=== PATIENT | female | born 1950 | race Caucasian/White ===

== ENCOUNTER 2017-01-21 09:39 | Observation (INO) | payer MEDICAID, MEDICARE ==
[2017-01-21] MEDS ORDERED: ASPIRIN 81 MG CHEW PO STA (09:59)
[2017-01-21] MEDS ORDERED: NITROGLYCERIN SL TABS 0.4 MG TAB SUBLINGUAL STA ×3 (09:59)
[2017-01-21] MEDS ORDERED: PANTOPRAZOLE 40 MG/10 ML VIAL IVP STA (10:00)
--- NOTE | 2017-01-21 10:06 | ED ---
General Adult HPI - General Chief complaint: Chest Pain Stated complaint: chest pain Time Seen by Provider: 01/21/17 09:56 Source: patient, RN notes reviewed Mode of arrival: wheelchair Limitations: no limitations - History of Present Illness Initial comments: Patient is a pleasant 66-year-old female presenting to the emergency Department with nausea and chest discomfort. Onset of symptoms was a couple of hours ago. Patient has had similar symptoms previously that she attributes to her hiatal hernia. Patient states the symptoms are similar however worse. Patient states she is vomiting more than normal. Patient states the discomfort is worse than normal. Patient states there may be some associated dyspnea. Patient is still mildly nauseated even without swallowing. No diaphoresis. Discomfort feels like a pressure. No abdominal pain. No radiation. Symptoms do increase with swallowing. - Related Data Home Medications Medication Instructions Recorded Confirmed Levothyroxine Sodium [Synthroid] 25 mcg PO HS 03/05/16 01/21/17 Meloxicam 15 mg PO Q48H 03/05/16 01/21/17 Ascorbic Acid [Vitamin C] 500 mg PO DAILY 01/21/17 01/21/17 Aspirin 81 mg PO DAILY 01/21/17 01/21/17 Multivitamins, Thera [Multivitamin 1 tab PO DAILY 01/21/17 01/21/17 (formulary)] [place]-3 Fatty Acids/Fish Oil [Fish 1 cap PO DAILY 01/21/17 01/21/17 Oil 1,000 mg Capsule] Ubidecarenone [Co Q-10] 50 mg PO DAILY 01/21/17 01/21/17 Allergies Allergy/AdvReac Type Severity Reaction Status Date / Time gluten Allergy Unknown Verified 01/21/17 10:08 latex Allergy Unknown Verified 01/21/17 10:08 [employer] Allergy Heart Uncoded 01/21/17 10:08 Palpitations Review of Systems ROS Statement: Those systems with pertinent positive or pertinent negative responses have been documented in the HPI. ROS Other: All systems not noted in ROS Statement are negative. Constitutional: Denies: fever Eyes: Denies: eye pain ENT: Denies: ear pain Respiratory: Reports: dyspnea. Denies: cough Cardiovascular: Reports: chest pain. Denies: palpitations Endocrine: Denies: fatigue Gastrointestinal: Reports: nausea, vomiting. Denies: abdominal pain Genitourinary: Denies: dysuria Musculoskeletal: Denies: back pain Skin: Denies: rash Neurological: Denies: weakness Past Medical History Past Medical History: No Reported History History of Any Multi-Drug Resistant Organisms: None Reported Past Surgical History: Appendectomy Past Psychological History: No Psychological Hx Reported Smoking Status: Never smoker Past Alcohol Use History: None Reported Past Drug Use History: None Reported General Exam Limitations: no limitations General appearance: alert, in no apparent distress Head exam: Present: atraumatic Eye exam: Present: normal appearance, PERRL ENT exam: Present: normal oropharynx Neck exam: Present: normal inspection Respiratory exam: Present: normal lung sounds bilaterally. Absent: chest wall tenderness Cardiovascular Exam: Present: regular rate, normal rhythm, normal heart sounds Expanded Peripheral pulses: 2+: Radial (R), Radial (L), Posterior Tibialis (R), Posterior Tibialis (L) GI/Abdominal exam: Present: soft. Absent: distended, tenderness, pulsatile mass Extremities exam: Present: normal inspection. Absent: pedal edema, calf tenderness Neurological exam: Present: alert Psychiatric exam: Present: normal affect, normal mood Skin exam: Present: normal color Course Vital Signs 01/21/17 01/21/17 01/21/17 09:46 10:57 11:05 Temperature 98.9 F Pulse Rate 83 66 72 Respiratory 18 16 16 Rate Blood Pressure 200/78 211/96 182/88 O2 Sat by Pulse 99 100 100 Oximetry 01/21/17 01/21/17 11:14 11:19 Temperature Pulse Rate 74 73 Respiratory 16 Rate Blood Pressure 151/75 195/91 O2 Sat by Pulse Oximetry EKG Findings - EKG Comments: EKG Findings:: Normal sinus rhythm at 86. Normal intervals. Normal axis. Septal Q waves. No acute ST change. Medical Decision Making - Medical Decision Making Patient reevaluated and updated. Case discussed in detail with Dr. Gutierrez, who will admit his patient. - Lab Data Result diagrams: 01/21/17 09:53 01/21/17 09:53 Lab Results 01/21/17 01/21/17 01/21/17 Range/Units 09:53 09:53 09:53 WBC 3.6 L (3.8-10.6) k/uL RBC 4.23 (3.80-5.40) m/uL Hgb 12.0 (11.4-16.0) gm/dL Hct 37.6 (34.0-46.0) % MCV 88.8 (80.0-100.0) fL MCH 28.3 (25.0-35.0) pg MCHC 31.9 (31.0-37.0) g/dL RDW 14.5 (11.5-15.5) % Plt Count 279 (150-450) k/uL Neutrophils % 53 % Lymphocytes % 24 % Monocytes % 13 % Eosinophils % 5 % Basophils % 1 % Neutrophils # 1.9 (1.3-7.7) k/uL Lymphocytes # 0.9 L (1.0-4.8) k/uL Monocytes # 0.5 (0-1.0) k/uL Eosinophils # 0.2 (0-0.7) k/uL Basophils # 0.0 (0-0.2) k/uL PT (9.0-12.0) sec INR (<1.1) APTT (22.0-30.0) sec Sodium 142 (137-145) mmol/L Potassium 4.0 (3.5-5.1) mmol/L Chloride 106 (98-107) mmol/L Carbon Dioxide 25 (22-30) mmol/L Anion Gap 11 mmol/L BUN 18 H (7-17) mg/dL Creatinine 0.63 (0.52-1.04) mg/dL Est GFR (MDRD) Af Amer >60 (>60 ml/min/1.73 sqM) Est GFR (MDRD) Non-Af >60 (>60 ml/min/1.73 sqM) Glucose 86 (74-99) mg/dL Calcium 9.6 (8.4-10.2) mg/dL Magnesium 1.9 (1.6-2.3) mg/dL Total Bilirubin 0.7 (0.2-1.3) mg/dL AST 27 (14-36) U/L ALT 30 (9-52) U/L Alkaline Phosphatase 86 (38-126) U/L Total Creatine Kinase 80 (30-135) U/L CK-MB (CK-2) 1.9 (0.0-2.4) ng/mL CK-MB (CK-2) Rel Index 2.4 Troponin I <0.012 (0.000-0.034) ng/mL Total Protein 7.6 (6.3-8.2) g/dL Albumin 4.4 (3.5-5.0) g/dL Amylase 61 (30-110) U/L Lipase 208 (23-300) U/L 01/21/17 Range/Units 09:53 WBC (3.8-10.6) k/uL RBC (3.80-5.40) m/uL Hgb (11.4-16.0) gm/dL Hct (34.0-46.0) % MCV (80.0-100.0) fL MCH (25.0-35.0) pg MCHC (31.0-37.0) g/dL RDW (11.5-15.5) % Plt Count (150-450) k/uL Neutrophils % % Lymphocytes % % Monocytes % % Eosinophils % % Basophils % % Neutrophils # (1.3-7.7) k/uL Lymphocytes # (1.0-4.8) k/uL Monocytes # (0-1.0) k/uL Eosinophils # (0-0.7) k/uL Basophils # (0-0.2) k/uL PT 10.6 (9.0-12.0) sec INR 1.0 (<1.1) APTT 23.8 (22.0-30.0) sec Sodium (137-145) mmol/L Potassium (3.5-5.1) mmol/L Chloride (98-107) mmol/L Carbon Dioxide (22-30) mmol/L Anion Gap mmol/L BUN (7-17) mg/dL Creatinine (0.52-1.04) mg/dL Est GFR (MDRD) Af Amer (>60 ml/min/1.73 sqM) Est GFR (MDRD) Non-Af (>60 ml/min/1.73 sqM) Glucose (74-99) mg/dL Calcium (8.4-10.2) mg/dL Magnesium (1.6-2.3) mg/dL Total Bilirubin (0.2-1.3) mg/dL AST (14-36) U/L ALT (9-52) U/L Alkaline Phosphatase (38-126) U/L Total Creatine Kinase (30-135) U/L CK-MB (CK-2) (0.0-2.4) ng/mL CK-MB (CK-2) Rel Index Troponin I (0.000-0.034) ng/mL Total Protein (6.3-8.2) g/dL Albumin (3.5-5.0) g/dL Amylase (30-110) U/L Lipase (23-300) U/L - Radiology Data Radiology results: image reviewed (Chest x-ray reveals no acute process) Disposition Clinical Impression: Chest pain, Abdominal pain Disposition: ADMITTED IP TO THIS HOSP Referrals: Yonathan Gutierrez MD [Primary Care Provider] - 1-2 days Time of Disposition: 12:02
[2017-01-21 10:17] LABS: Basophils % (A) 1 %; CH 28.2; CHCM 31.8; Eosinophils # (A) 0.2 k/uL (0-0.7); Eosinophils % (A) 5 %; HCT 37.6 % (34.0-46.0); HDW 2.27; Luc # (Auto) 0.14; Luc % (Auto) 4; Lymphocytes # (A) 0.9 k/uL (1.0-4.8); Lymphocytes % (A) 24 %; MCH 28.3 pg (25.0-35.0); MCHC 31.9 g/dL (31.0-37.0); MCV 88.8 fL (80.0-100.0); Mean Platelet Volume 6.2; Monocytes # (A) 0.5 k/uL (0-1.0); Monocytes % (A) 13 %; Neutrophils # (A) 1.9 k/uL (1.3-7.7); Neutrophils % (A) 53 %; RBC 4.23 m/uL (3.80-5.40); RDW 14.5 % (11.5-15.5); WBC 3.6 k/uL (3.8-10.6); WBC (Perox) 3.76
[2017-01-21 10:29] LABS: Partial Thromboplastin Time 23.8 sec (22.0-30.0); Prothrombin Time 10.6 sec (9.0-12.0)
[2017-01-21 10:32] LABS: ALT 30 U/L (9-52); AST 27 U/L (14-36); Alkaline Phosphatase 86 U/L (38-126); Amylase 61 U/L (30-110); Anion Gap 11 mmol/L; Blood Urea Nitrogen 18 mg/dL (7-17); Calcium 9.6 mg/dL (8.4-10.2); Carbon Dioxide 25 mmol/L (22-30); Chloride 106 mmol/L (98-107); Glucose 86 mg/dL (74-99); Magnesium 1.9 mg/dL (1.6-2.3); Non-African American GFR(MDRD) >60 (>60 ml/min/1.73 sqM); Sodium 142 mmol/L (137-145); Total Bilirubin 0.7 mg/dL (0.2-1.3); Total Protein 7.6 g/dL (6.3-8.2)
[2017-01-21 10:54] LABS: Creatine Kinase 80 U/L (30-135)
--- NOTE | 2017-01-21 11:00 | XR ---
EXAMINATION TYPE: XR chest 2V DATE OF EXAM: 01/21/2017 10:33 AM COMPARISON: 10/30/2014 HISTORY: 66-year-old female with chest pain TECHNIQUE: PA and lateral views FINDINGS: The heart is normal size. Minimal atherosclerotic arch calcifications are noted. No consolidation or pleural effusion. Mild anterior wedging of a vertebral body in the lower thoracic spine was present i 2014 compatible with a chronic compression injury. Grade 1 retrolisthesis near the thoracolumbar ju nction was also present previously. IMPRESSION: Chronic changes without acute cardiopulmonary process.
[2017-01-21 11:06] LABS: Creatine Kinase MB 1.9 ng/mL (0.0-2.4); Troponin I <0.012 ng/mL (0.000-0.034)
[2017-01-21] MEDS ORDERED: ONDANSETRON 4 MG/2 ML VIAL IVP STA (11:07)
[2017-01-21] MEDS ORDERED: NITROGLYCERIN SL TABS 0.4 MG TAB SUBLINGUAL PRN (12:07)
[2017-01-21] MEDS ORDERED: FAMOTIDINE 20 MG/2 ML VIAL IV STA (12:10)
[2017-01-21] MEDS ORDERED: ONDANSETRON 4 MG/2 ML VIAL IVP PRN (13:54)
--- NOTE | 2017-01-21 14:07 | P.CONS ---
History of Present Illness - Reason for Consult Consult date: 01/21/17 Dysphagia Requesting physician: Yonathan Gutierrez - History of Present Illness 66-year-old female patient of Dr. Gutierrez with a past medical history of osteoarthritis, GERD presents to hospital with acute midsternal chest pain 1 day after eating oatmeal. She had immediate sensation of the oatmeal getting stuck in the mid to upper esophageal region but eventually passed but took longer than usual. For several years she has had intermittent symptoms of reflux and has tried Prilosec in the past with improvement. She maintains her GI symptoms with Nathalia and acidophilus probiotic. Many years ago she underwent a barium swallow with results of a small hiatal hernia. No history of EGD. She feels at times food such as beef sometimes breads gets stuck in the midsternal region but eventually passes. Denies epigastric/abdominal pain, emesis hematemesis hematochezia or melena. No weight loss. No history of colonoscopy. She placed himself on a gluten diet choice 4 years ago and reports improvement in her health. No changes in her bowel habits. No cardiac history. White count 3.6. hemoglobin 12. Platelet 279. INR 1.0. BUN 18. Creatinine 0.6. Troponin less than 0.012. LFTs total bilirubin lipase within normal limits. No excessive NSAIDs or aspirin. Medications include meloxicam 15 mg every 2 days and baby aspirin daily. No alcohol. Last dose of baby aspirin yesterday morning. Last dose of meloxicam Tuesday morning. Review of Systems Constitutional: Denies fever, chills, sweats, weight gain, or loss. HEENT: Negative for migraines, blurred vision or loss, earaches, drainage, tinnitus, oral mucosal lesions, dysphagia, or odynophagia. CARDIAC: Negative for chest pain, arrhythmias, or palpitation. RESPIRATORY: Negative for shortness of breath, hemoptysis, cough, or sputum production. GI: See HPI for pertinent findings. : Negative for hematuria, urgency, frequency, polyuria, or dysuria. GYNc: Denies possibility of . Negative vaginal discharge. MUSCULOSKELETAL: Osteoarthritis. Negative for muscle aches, swelling, arthritis , and arthralgias. NEUROLOGIC: Negative for stroke or TIA. ENDOCRINE: Negative for thyroid problems. SKIN: Negative for rash or itching. PSYCHIATRIC: Negative history for depression and anxiety All systems: negative (See HPI) Past Medical History Past Medical History: No Reported History History of Any Multi-Drug Resistant Organisms: None Reported Past Surgical History: Appendectomy Past Psychological History: No Psychological Hx Reported Smoking Status: Never smoker Past Alcohol Use History: None Reported Past Drug Use History: None Reported Medications and Allergies Home Medications Medication Instructions Recorded Confirmed Type Levothyroxine Sodium [Synthroid] 25 mcg PO HS 03/05/16 01/21/17 History Meloxicam 15 mg PO Q48H 03/05/16 01/21/17 History Ascorbic Acid [Vitamin C] 500 mg PO DAILY 01/21/17 01/21/17 History Aspirin 81 mg PO DAILY 01/21/17 01/21/17 History Multivitamins, Thera [Multivitamin 1 tab PO DAILY 01/21/17 01/21/17 History (formulary)] [place]-3 Fatty Acids/Fish Oil [Fish 1 cap PO DAILY 01/21/17 01/21/17 History Oil 1,000 mg Capsule] Ubidecarenone [Co Q-10] 50 mg PO DAILY 01/21/17 01/21/17 History Allergies Allergy/AdvReac Type Severity Reaction Status Date / Time gluten Allergy Unknown Verified 01/21/17 10:08 latex Allergy Unknown Verified 01/21/17 10:08 [employer] Allergy Heart Uncoded 01/21/17 10:08 Palpitations Physical Exam Vitals: Vital Signs Temp Pulse Pulse Resp BP BP Pulse Ox 01/21/17 12:57 97.5 F L 71 18 169/76 100 01/21/17 12:21 97.7 F 74 18 151/71 98 01/21/17 11:19 73 195/91 01/21/17 11:14 74 16 151/75 01/21/17 11:05 72 16 182/88 100 01/21/17 10:57 66 16 211/96 100 01/21/17 09:46 98.9 F 83 18 200/78 99 Intake and Output 01/20/17 01/21/17 01/21/17 22:59 06:59 14:59 Other: Weight 71.4 kg Patient Weight 01/22/17 06:59 Weight 71.4 kg General appearance: The patient is alert, oriented, in no acute distress. HET: Head is normocephalic and atraumatic. Pupils are equal and reactive. Oropharynx is clear without lesions. Neck: Supple without lymphadenopathy. Trachea midline. Heart: S1 S2. Regular rate and rhythm. Lungs: No crackles or wheezes are heard. Abdomen: Soft, nontender, nondistended with bowel sounds. No peritoneal signs. No palpable organomegaly or masses. Extremities: Normal skin color and turgor. No cyanosis, rash, ulceration, clubbing, or edema. Radial and pedal pulses are 2/4 bilaterally. Neurological: No focal deficits. Strength and sensation are grossly intact. Results CBC & Chem 7: 01/21/17 09:53 01/21/17 09:53 Labs: Abnormal Lab Results - Last 24 Hours (Table) 01/21/17 01/21/17 Range/Units 09:53 09:53 WBC 3.6 L (3.8-10.6) k/uL Lymphocytes # 0.9 L (1.0-4.8) k/uL BUN 18 H (7-17) mg/dL Assessment and Plan (1) Dysphagia Narrative/Plan: Suspect GERD possible exacerbation possible stricture disease. Status: Acute (2) GERD (gastroesophageal reflux disease) Status: Acute Plan: 1. Continue with Protonix 40 mg IV daily. 2. Full liquid diet tonight nothing by mouth after midnight. 3. We'll proceed with EGD evaluation tomorrow morning. The line runner has discussed the risks, benefits and alternative therapies for the above-mentioned procedure and for both sedation/analgesia as well as necessary blood product administration, if indicated, as they pertain to this patient. The patient has indicated understanding and acceptance of the risks and procedures discussed. Thank you for this kind referral and the opportunity to participate in the care of your patient. This consultation was discussed with Dr. Flores. The impression and plan of care have been directed as dictated.
[2017-01-21 14:15] VITALS: BMI 23.2
--- NOTE | 2017-01-21 16:14 | US ---
EXAMINATION TYPE: US abdomen complete DATE OF EXAM: 01/21/2017 3:38 PM COMPARISON: NONE CLINICAL HISTORY: 60-year-old female with abdominal pain. Chest pain, vomiting. TECHNIQUE: Multiple sonographic images of the abdomen are obtained. FINDINGS: Liver Length: 14.0 cm Gallbladder Wall: 0.2 cm CBD: 0.5 cm Spleen: 9.5 cm Right Kidney: 11.2 x 5.2 x 4.9 cm Left Kidney: 11.7 x 5.2 x 3.6 cm Pancreas: Suboptimal visualization of the pancreatic tail secondary to shadowing from bowel gas. Vis ualized portions show no gross abnormality. Liver: Homogeneous echotexture without focal lesion. Gallbladder: No abnormal gallbladder distention, wall thickening, pericholecystic fluid, or shadowin g calculi. Evidence for sonographic Soni's sign: no CBD: Within normal limits Spleen: Within normal limits Right Kidney: no evidence of hydronephrosis Left Kidney: no evidence of hydronephrosis Upper IVC: wnl Abd Aorta: wnl IMPRESSION: Limited visualization of the pancreatic tail. Otherwise, unremarkable sonographic examination of the abdomen.
--- NOTE | 2017-01-21 16:18 | HP ---
DATE OF ADMISSION: 01/21/2017 CHIEF COMPLAINT: Chest pain, upper abdominal pain, nausea and vomiting. This is a 66-year-old white female who was brought to the emergency room with complaints of chest pain, nausea and vomiting and upper abdominal pain. These symptoms started about 2 hours prior to coming to the ER. The patient used to sometimes get nausea and vomiting with similar complaints, but this time it was progressively getting worse. In the ER patient's CBC showed a WBC count of 3.6, hemoglobin 12, platelet count 279. Troponin was less than 0.012 and CK-MB 2.4. Cardiac enzymes were within normal limits. Sodium 142, potassium 4, BUN 18, creatinine 0.63. Liver enzymes were within normal limits. Patient was admitted to the hospital for further evaluation and treatment. Patient also had some associated symptoms of dyspnea, but there was no diaphoresis. There was no radiation of the chest pain. There was no blood in the vomitus. Her past medical history reveals that she is known to have hypothyroidism and has been on Synthroid 25 mcg daily. She also has degenerative arthritis of multiple joints and has been on Mobic 15 mg daily. She was taking low-dose aspirin, 81 mg daily. She also has had high blood pressure, but patient refused to take any medication for that. She is QUESTIONABLY ALLERGIC TO GLUTEN. She has had no major operations in the past. FAMILY HISTORY: History of heart disease and lung disease. REVIEW OF SYSTEMS: Patient denies any headache. Appetite has been poor lately because of nausea and vomiting. She also has chest pain, as mentioned before, and also has upper abdominal pain. No polyuria or dysuria. She denies any diarrhea. She has no neurological symptoms. Physical examination reveals a 66-year-old white female, well nourished and well developed. She is alert and oriented. She is still complaining of some nausea and chest discomfort but not in acute distress. She has no polyuria or dysuria. She has no neurological symptoms. On physical examination there is no jaundice. There is no generalized lymphadenopathy. There are no petechiae or bruises. Temperature 98.9. Blood pressure at the time of arrival in the ER was 200/78. It came down to 151/75. Pulse 84 per minute, respirations 18 per minute. Neck is supple. There is no jugular venous distention. There is no goiter. There is no carotid bruit. Heart is in sinus rhythm. Lungs are clear to auscultation and percussion. Abdomen is soft and nontender. No mass palpable. Examination of the lower extremities reveals no pitting edema. Neurologic examination does not reveal any localizing signs. IMPRESSION: 1. Chest pain. 2. Abdominal pain. 3. Nausea and vomiting. 4. Hypertension. 5. Gastroesophageal reflux disease. 6. History of hiatal hernia. 7. Hypothyroidism. PLAN: The patient will be admitted to hospital. Her heart will be monitored with telemetry and serial EKGs and cardiac enzymes. Will also get a cardiology consultation. Because of the vomiting, nausea and history of hiatal hernia, we will get a gastroenterology consultation. Dr. Flores has been consulted. Will start her on IV fluids to maintain adequate hydration. Nausea will be controlled with Zofran IV on a p.r.n. basis. The prognosis is guarded. The diagnosis, prognosis and therapeutic plans were discussed in detail with the patient and also with the patient's .
[2017-01-21 16:49] LABS: Creatine Kinase 65 U/L (30-135)
[2017-01-21 16:57] LABS: Creatine Kinase MB 1.3 ng/mL (0.0-2.4); Troponin I <0.012 ng/mL (0.000-0.034)
[2017-01-21] MEDS: NITROGLYCERIN OINT 1 INCH/GM PACKET TOPICAL SCH (18:49)
[2017-01-21] MEDS: LEVOTHYROXINE 25 MCG TAB PO SCH (20:53)
[2017-01-21 22:31] LABS: Creatine Kinase 54 U/L (30-135)
[2017-01-21 22:44] LABS: Creatine Kinase MB 1.2 ng/mL (0.0-2.4); Troponin I <0.012 ng/mL (0.000-0.034)
[2017-01-22 02:42] LABS: Cholesterol 228 mg/dL (<200); Triglycerides 51 mg/dL (<150)
[2017-01-22 02:51] LABS: HDL Cholesterol 120 mg/dL (40-60)
[2017-01-22] MEDS: NITROGLYCERIN OINT 1 INCH/GM PACKET TOPICAL SCH ×4 (05:56→17:05)
[2017-01-22] MEDS ORDERED: SODIUM CHLORIDE 0.9% 500 ML IV ONE (08:05)
[2017-01-22] MEDS ORDERED: PROPOFOL 10 MG/ML 20 ML VIAL IV ONE (08:10)
[2017-01-22] MEDS ORDERED: LIDOCAINE 1% INJ 10MG/ML (20 ML MDV) ONE (08:10)
--- NOTE | 2017-01-22 08:38 | P.PCN ---
Date of Procedure: 01/22/17 Preoperative Diagnosis: Postoperative Diagnosis: Procedure(s) Performed: BRIEF HISTORY: Patient is a 66-year-old, pleasant, white female, admitted to the hospital with severe chest pain and dysphagia for the last 2 days duration. She is been having intermittent dysphagia to solids for the last 6 months but yesterday her symptoms were extremely painful and intense and hence came into the ER and subsequently admitted for further evaluation. She is scheduled for an upper endoscopy with possible dilation today. She denies any heartburn. In the past she did take Prilosec 20 mg daily but quit about a few months ago.. PROCEDURE PERFORMED: Esophagogastroduodenoscopy with biopsy and dilation. PREOPERATIVE DIAGNOSIS: Chest pain and dysphagia. IV sedation per anesthesia. PROCEDURE: After informed consent was obtained, the patient was brought into the endoscopy unit. IV sedation was administered by Anesthesia under continuous monitoring. Initially the Olympus GIF-140 video endoscope was inserted into the mouth. Esophagus intubated without any difficulty. It was gradually advanced into the stomach and duodenum and carefully examined. The bulb and the second part of the duodenum appeared normal. The scope at this time was withdrawn to the stomach, adequately insufflated with air, and upon careful examination, mucosa of the antrum had scattered erosions and biopsies were done from this area. The body, cardia and the fundus appeared normal. The scope was then withdrawn into the esophagus. The GE junction was located at 39 cm from the incisors. Small hiatal hernia noted. There was a distal esophageal Schatzki's ring identified and this was dilated using 12-15 mm balloon in sequential fashion for total of 1-1/2 minutes. The rest of the esophagus appeared normal. There were no erosions or ulcerations seen, biopsies were done from the distal esophagus and the patient tolerated the procedure well. IMPRESSION: 1. Distal esophageal Schatzki's ring status post balloon dilation using 12-15 mm TTS balloon as described above. 2. Small hiatal hernia 3. Antral erosive gastritis. RECOMMENDATIONS: The findings of this examination were discussed with the patient as well as a family. She was advised to follow with the biopsy results. She will continue with Protonix 40 mg daily and follow anti-reflex measures. She will be on a clear liquid diet for lunch and soft diet for dinner. She was advised to follow up in office in 4-6 weeks.. Implants: Indications for Procedure: Operative Findings: Description of Procedure:
[2017-01-22] MEDS ORDERED: ASPIRIN 325 MG TAB PO SCH (09:00)
[2017-01-22] MEDS ORDERED: FAMOTIDINE 20 MG/2 ML VIAL IV SCH (09:00)
--- NOTE | 2017-01-22 09:19 | P.PN ---
Progress Note - Text Impression 66-year-old female presenting with right-sided chest discomfort after swallowing oatmeal. Similar symptoms after eating beef Gastritis and Schatzki ring and hiatus hernia noted on EGD Schatzki ring was dilated Possible systolic hypertension HDL 120 LDL 98 Total cholesterol 228 Triglycerides 51 Plan Low salt diet, home blood pressure readings to look for fluctuations in blood pressure and documentation of elevations in systolic blood pressure 2-D echo and Doppler study assess degree of left ventricular hypertrophy Follow-up with Dr. Viramontes in 6 weeks so
[2017-01-22] MEDS: PANTOPRAZOLE 40 MG/10 ML VIAL IVP SCH (10:09)
--- NOTE | 2017-01-22 10:27 | CONS ---
DATE OF CONSULTATION: A 66-year-old female who presented with somewhat right-sided chest discomfort of reasonable severity to ( ) this hospital admission. The patient was eating oatmeal and she feels that it may have gotten stuck while she was swallowing and she suddenly having extreme sudden onset pain on the right side, which would just not let up. She finally threw up and the pain became better. She still came to the hospital because it was a dull ache. In the hospital, the ECG was normal. The cardiac enzymes have been normal. PAST HISTORY: Possible hypertension. She has had systolic blood pressure readings in the 150s. She denies any dyslipidemia. In fact her HDL is 120, LDL 98. REVIEW OF SYSTEMS: No fever, chills or rigors. No cough or expectoration. She had nausea and vomiting, but no diarrhea and no abdominal pain. No hematuria or dysuria. No strokes or seizures. No skin lesions. No musculoskeletal complaints. PAST HISTORY: She denies any diabetes. FAMILY HISTORY: No family history of premature coronary artery disease. SOCIAL HISTORY: Nonsmoker. She also is sensitive to gluten. On examination, her blood pressure is 135/60 and 160/74 mmHg, heart rate is in the 50s and 60s. Head and neck examination is normal. (She has hypothyroidism and is on replacement therapy.) Heart sounds S1, S2 normal with no murmurs, no gallops. Breath sounds are normal. No rhonchi. No crackles. Abdomen is soft, nontender. Extremities are warm, no edema. She is resting comfortably in bed. IMPRESSION: 1. Severe chest discomfort triggered after swallowing, she was eating oatmeal. These symptoms occurred in a milder form after eating beef. 2. Hypothyroidism. 3. Elevated blood pressure readings and possible systolic hypertension. SUGGEST: Two-D echo and Doppler study today to look at degree of LVH. There is no evidence of myocardial infarction so far. She can follow up with me as an outpatient within 6 weeks.
--- NOTE | 2017-01-22 13:07 | ECHOF ---
Referral Reason:cp, htn MEASUREMENTS -------- HEIGHT: 175.3 cm WEIGHT: 71.2 kg BP: 168/79 RVIDd: 3.0 cm (< 3.3) IVSd: 1.3 cm (0.6 - 1.1) LVIDd: 4.1 cm (3.9 - 5.3) LVPWd: 1.2 cm (0.6 - 1.1) IVSs: 1.5 cm LVIDs: 2.6 cm LVPWs: 1.5 cm LA Diam: 3.6 cm (2.7 - 3.8) LAESV Index (A-L): 33.57 ml/m Ao Diam: 2.8 cm (2.0 - 3.7) AV Cusp: 1.9 cm (1.5 - 2.6) MV EXCURSION: 15.510 mm (> 18.000) MV EF SLOPE: 67 mm/s (70 - 150) EPSS: 0.7 cm MV E Luis Felipe: 0.82 m/s MV DecT: 294 ms MV A Luis Felipe: 0.85 m/s MV E/A Ratio: 0.97 RAP: 5.00 mmHg RVSP: 23.73 mmHg FINDINGS -------- Sinus rhythm. This was a technically good study. The left ventricular size is normal. There is mild concentric left ventricular hypertrophy. Overall left ventricular systolic function is normal with, an EF between 60 - 65 %. The right ventricle is normal in size and function. LA is midly dilated 29-33ml/m2. The right atrium is normal in size. Aortic valve is trileaflet and is mildly thickened. The mitral valve leaflets are mildly thickened. Mild mitral annular calcification present. There is trace to mild mitral regurgitation. Mild tricuspid regurgitation present. Right ventricular systolic pressure is normal at < 35 mmHg. Trace/mild (physiologic) pulmonic regurgitation. The aortic root, ascending aorta and aortic arch are normal. The inferior vena cava is mildly dilated. The pericardium is normal. CONCLUSIONS -------- 1. Sinus rhythm. 2. Mild mitral annular calcification present. 3. There is trace to mild mitral regurgitation. 4. Mild tricuspid regurgitation present. 5. Right ventricular systolic pressure is normal at < 35 mmHg. 6. Trace/mild (physiologic) pulmonic regurgitation. 7. The aortic root, ascending aorta and aortic arch are normal. 8. The inferior vena cava is mildly dilated. 9. The pericardium is normal. 10. This was a technically good study. 11. The left ventricular size is normal. 12. There is mild concentric left ventricular hypertrophy. 13. Overall left ventricular systolic function is normal with, an EF between 60 - 65 %. 14. The right ventricle is normal in size and function. 15. LA is midly dilated 29-33ml/m2. 16. Aortic valve is trileaflet and is mildly thickened. 17. The mitral valve leaflets are mildly thickened. NEIGHBORHOOD CONSERVATION OFFICER: Laura Duenas RDCS
--- NOTE | 2017-01-22 15:49 | PN ---
DATE OF SERVICE: 01/22/2017 This 66-year-old white female who was brought to the emergency room with complaints of severe nausea and vomiting and anterior chest pain, pressure-like pain, and patient in the ER she was evaluated with EKG, cardiac enzymes and cardiac enzymes are within normal limits. She was also known to have hiatal hernia. Patient was admitted to the hospital for further evaluation and treatment. The patient was given IV fluids and cardiology consultation and also gastroenterology consultation were requested. The patient was seen by Dr. Cartwright in consultation. Patient had an echocardiogram and this showed some ventricular hypertrophy and patient is known to have hypertension, but patient has not been taking medication as she refused to take any blood pressure medicine in the past. Dr. Cartwright is going to follow her as outpatient when discharged. Patient was also seen by Dr. Flores in consultation. The patient has had an EGD this morning and the patient was found to have a distal esophageal Schatzki's ring and this was dilated and patient also was found to have antral erosive gastritis and a small hiatal hernia. Biopsies have been obtained and the pathology report is pending. Patient has been started on clear liquids today and that will be advanced to soft diet as tolerated. Patient is asymptomatic now. Vital signs are stable. Heart is in sinus rhythm. Lungs are clear. There are no acute cardiorespiratory problems. The diagnosis, prognosis, and therapeutic plans were discussed in detail with the patient and if she continues to be asymptomatic, the patient will be discharged home tomorrow.
[2017-01-22] MEDS: LEVOTHYROXINE 25 MCG TAB PO SCH (21:27)
[2017-01-23] MEDS: NITROGLYCERIN OINT 1 INCH/GM PACKET TOPICAL SCH ×3 (04:06→11:12)
[2017-01-23] MEDS: PANTOPRAZOLE 40 MG/10 ML VIAL IVP SCH (07:32)
[2017-01-23 08:03] VITALS: BP 165/77; PULSE 63; RESP 16; TEMP 98.1
--- NOTE | 2017-01-23 12:03 | PN ---
Kandice Sofia is doing well. She has had no more chest discomfort. No dizziness, lightheadedness. She is not able to swallow food. She is sitting comfortably in bed. I reviewed her 2-D echo and it does not show mild left ventricular hypertrophy preserved LV systolic function. Her blood pressures are definitely elevated here in the hospital and range from 135/60 to 169/67 mm of mercury, currently she is not on any antihypertensive therapy since she was quite sensitive to this and became very dizzy and lightheaded. Heart sounds S1, S2 normal. Breath sounds are normal. No rhonchi. No crackles. No JVD, thyromegaly. She is afebrile, 98.1 degrees Fahrenheit. Respirations are normal, pulse is normal. IMPRESSION: 1. Hypertension. 2. Left ventricular hypertrophy without heart failure. 3. Chest discomfort atypical. Suggest: From a cardiac she can go home and she will follow up with me in about 6 weeks and I will ( ) any antihypertensive therapy and further cardiac work-up.
--- NOTE | 2017-01-23 15:38 | PN ---
Patient is a 66-year-old pleasant lady admitted to the hospital with acute chest pain and dysphagia. She underwent an upper endoscopy yesterday that showed distal esophageal Schatzki's ring and small hiatal hernia which was dilated. She is feeling much better today. She is on Protonix 40 mg q.12 hours and her pain is better. Heartburn has resolved. She is on a soft diet, tolerating well. On physical examination, appears comfortable in no apparent distress. Vitals signs are stable. Blood pressure is 141/74, pulse rate 66, temperature 98.1. HEENT examination unremarkable. Conjunctivae pink. Sclerae anicteric. Oral cavity no lesions. NECK: No jugular venous distention or lymph node enlargement. CHEST: Chest was clear to auscultation. HEART: Regular rate and rhythm. ABDOMEN: Soft. Bowel sounds are positive. No organomegaly. EXTREMITIES: No pedal edema. SKIN: No rashes. NEURO: Alert and oriented x3. No focal deficits. No labs available from today. IMPRESSION: Gastroesophageal reflux disease/distal esophageal Schatzki's ring, status post EGD with dilation yesterday and the patient is feeling much better. RECOMMENDATIONS: 1. Continue with Prilosec 20 mg daily following discharge from the hospital. 2. Antireflux measures. 3. Diet modification. 4. Follow up in the office in 2 to 4 weeks.
== END 2017-01-23 11:42 | disposition home or self-care (01) ==
LOC: EC 09:39 → 3OBS 12:07 → 3SUR 01-22 14:38
PROVIDERS: ADMIT Internal Medicine; ATTEND Internal Medicine
DX: K21.9 Gastro-esophageal reflux disease without esophagitis (principal); K22.2 Esophageal obstruction; K44.9 Diaphragmatic hernia without obstruction or gangrene; M19.90 Unspecified osteoarthritis, unspecified site; K29.60 Other gastritis without bleeding; I11.9 Hypertensive heart disease without heart failure; E03.9 Hypothyroidism, unspecified; Z79.899 Other long term (current) drug therapy; Z79.82 Long term (current) use of aspirin; Z91.040 Latex allergy status; Z91.02 Food additives allergy status; Z82.49 Family history of ischemic heart disease and other diseases of the circulatory system
CPT/HCPCS: 96374; 96375; 99285; 36415; 93005; 93306; 88305; 80061; 80053; 82150; 82550; 82553; 83690; 83735; 84484; 85025; 85610; 85730; 88342; 88341; 71020; 76700; 43239; 43249; G0378 ×3; J2405; J2001; J2704; C9113 ×3; C1726

== ENCOUNTER → 2017-05-03 | Outpatient (CLI) | payer MEDICAID ==
[2017-05-03 09:35] LABS: CH 30.6; CHCM 33.4; HCT 37.1 % (34.0-46.0); HDW 2.16; MCH 29.8 pg (25.0-35.0); MCHC 32.4 g/dL (31.0-37.0); MCV 92.1 fL (80.0-100.0); Mean Platelet Volume 7.1; RBC 4.03 m/uL (3.80-5.40); RDW 15.2 % (11.5-15.5); WBC 3.7 k/uL (3.8-10.6)
[2017-05-03 09:49] LABS: Appearance,Urine Clear (Clear); Bilirubin,Urine Negative (Negative); Glucose,Urine (UA) Negative (Negative); Ketones,Urine Negative (Negative); Leukocyte Esterase,Urine Negative (Negative); Nitrite,Urine Negative (Negative); PH, Urine 6.5 (5.0-8.0); Protein,Urine Negative (Negative); Specific Gravity,Urine 1.005 (1.001-1.035); UA Billing (MACRO vs. MICRO) CHEM; Urobilinogen,Urine <2.0 mg/dL (<2.0)
[2017-05-03 09:55] LABS: ALT 35 U/L (9-52); AST 28 U/L (14-36); Alkaline Phosphatase 71 U/L (38-126); Anion Gap 6 mmol/L; Blood Urea Nitrogen 18 mg/dL (7-17); Calcium 9.8 mg/dL (8.4-10.2); Carbon Dioxide 29 mmol/L (22-30); Chloride 103 mmol/L (98-107); Glucose 82 mg/dL (74-99); Non-African American GFR(MDRD) >60 (>60 ml/min/1.73 sqM); Potassium 4.8 mmol/L (3.5-5.1); Sodium 138 mmol/L (137-145); Total Bilirubin 0.4 mg/dL (0.2-1.3); Total Protein 7.2 g/dL (6.3-8.2)
== END | disposition home or self-care (01) ==
LOC: LABWHC1 09:18
PROVIDERS: ATTEND Internal Medicine
DX: I11.9 Hypertensive heart disease without heart failure (principal); E03.9 Hypothyroidism, unspecified; R53.82 Chronic fatigue, unspecified
CPT/HCPCS: 36415; 80053; 81003; 84439; 84443; 85027; 86308

== ENCOUNTER → 2017-12-06 | Outpatient (CLI) | payer MEDICARE, BC ==
[2017-12-06 11:27] LABS: HCT 38.9 % (34.0-46.0); HGB 12.7 gm/dL (11.4-16.0); MCHC 32.7 g/dL (31.0-37.0); MCV 91.7 fL (80.0-100.0); Mean Platelet Volume 6.9; Platelet Count 283 k/uL (150-450); RBC 4.24 m/uL (3.80-5.40); RDW 13.1 % (11.5-15.5); WBC 3.7 k/uL (3.8-10.6)
[2017-12-06 11:33] LABS: ALT 30 U/L (9-52); AST 25 U/L (14-36); Albumin 4.3 g/dL (3.5-5.0); Alkaline Phosphatase 73 U/L (38-126); Anion Gap 12 mmol/L; Blood Urea Nitrogen 19 mg/dL (7-17); Calcium 10.3 mg/dL (8.4-10.2); Carbon Dioxide 27 mmol/L (22-30); Chloride 103 mmol/L (98-107); Cholesterol 237 mg/dL (<200); Glucose 95 mg/dL (74-99); Potassium 4.6 mmol/L (3.5-5.1); Sodium 142 mmol/L (137-145); Total Bilirubin 0.5 mg/dL (0.2-1.3); Total Protein 7.5 g/dL (6.3-8.2); Triglycerides 45 mg/dL (<150)
[2017-12-06 11:40] LABS: HDL Cholesterol 122 mg/dL (40-60); LDL Cholesterol,Calculated 106 mg/dL (0-99)
[2017-12-06 11:44] LABS: T4, Free (Free Thyroxine) 1.26 ng/dL (0.78-2.19)
== END | disposition home or self-care (01) ==
LOC: LABWHC1 10:22
PROVIDERS: ATTEND Internal Medicine
DX: Z00.00 Encounter for general adult medical examination without abnormal findings (principal); I11.0 Hypertensive heart disease with heart failure; I50.9 Heart failure, unspecified; E03.9 Hypothyroidism, unspecified; K21.0 Gastro-esophageal reflux disease with esophagitis; E78.2 Mixed hyperlipidemia
CPT/HCPCS: 36415; 80053; 80061; 82272; 84439; 84443; 85027

== ENCOUNTER → 2018-12-08 | Outpatient (CLI) | payer MEDICARE, BC ==
[2018-12-08 11:19] LABS: HCT 40.3 % (34.0-46.0); MCH 30.4 pg (25.0-35.0); MCHC 32.3 g/dL (31.0-37.0); MCV 94.2 fL (80.0-100.0); Mean Platelet Volume 6.7; Platelet Count 278 k/uL (150-450); RBC 4.28 m/uL (3.80-5.40); RDW 13.8 % (11.5-15.5); WBC 3.9 k/uL (3.8-10.6)
[2018-12-08 18:05] LABS: ALT 25 U/L (8-44); AST 29 U/L (13-35); Albumin/Globulin Ratio 1.92 (1.60-3.17); Alkaline Phosphatase 75 U/L (41-126); Calcium 9.9 mg/dL (8.7-10.3); Chloride 105 mmol/L (96-109); Cholesterol 237 mg/dL (0-200); Globulin 2.4 g/dL (1.6-3.3); Glucose 89 mg/dL (70-110); Potassium 4.6 mmol/L (3.5-5.5); Sodium 138 mmol/L (135-145); Total Bilirubin 0.5 mg/dL (0.3-1.2); Triglycerides <50.0 mg/dL (0.0-149.0); VLDL Calculation 9.98 mg/dL (5.00-40.00)
== END ==
LOC: LABWHC1 10:37
PROVIDERS: ATTEND Internal Medicine
DX: I11.9 Hypertensive heart disease without heart failure (principal); K21.0 Gastro-esophageal reflux disease with esophagitis; E78.2 Mixed hyperlipidemia; E03.9 Hypothyroidism, unspecified
CPT/HCPCS: 36415; 80053; 80061; 84439; 84443; 85027

== ENCOUNTER → 2018-12-27 | Outpatient (CLI) | payer MEDICARE, BC ==
--- NOTE | 2018-12-27 08:36 | US ---
EXAMINATION TYPE: US thyroid st tissue head/neck DATE OF EXAM: 12/27/2018 COMPARISON: NONE CLINICAL HISTORY: R94.6 abnormal labs R22 Mass lump. Trouble swallowing, feeling tired GLAND SIZE: Right Lobe: 4.5 x 1.1 x 1.2 cm Overall Parenchyma: homogenous Left Lobe: 4.6 x 0.9 x 1.4 cm Overall Parenchyma: homogeneous Isthmus Thickness: 0.3 cm NODULES RIGHT: # of nodules measured on right: 0 LEFT: # of nodules measured on left: 0 ISTHMUS: # of nodules measured in the isthmus: 0 Bilateral neck scanned, no evidence of lymphadenopathy. IMPRESSION: Normal ultrasound of the thyroid gland.
--- NOTE | 2018-12-27 09:05 | XR ---
EXAMINATION TYPE: XR chest 2V DATE OF EXAM: 12/27/2018 COMPARISON: 01/21/2017 HISTORY: Shortness of breath TECHNIQUE: Frontal and lateral views of the chest are obtained. FINDINGS: Scattered senescent parenchymal changes noted. No evidence for infiltrate. No evidence for atelectasis. Heart size is stable. Mediastinal structures are stable and grossly unremarkable. No evidence for hilar prominence. Degenerative changes dorsal spine. IMPRESSION: 1. No evidence for acute pulmonary disease.
== END ==
LOC: RADUSWWP 07:41
PROVIDERS: ATTEND Internal Medicine
DX: R22.0 Localized swelling, mass and lump, head (principal); R94.6 Abnormal results of thyroid function studies; R05 Cough
CPT/HCPCS: 71046; 76536

== ENCOUNTER → 2019-04-02 | Outpatient (CLI) | payer MEDICARE, BC ==
[2019-04-02 11:44] LABS: Basophils % (A) 1 %; Eosinophils # (A) 0.2 k/uL (0-0.7); Eosinophils % (A) 6 %; HCT 38.9 % (34.0-46.0); HGB 12.5 gm/dL (11.4-16.0); Lymphocytes # (A) 0.9 k/uL (1.0-4.8); Lymphocytes % (A) 28 %; MCH 30.7 pg (25.0-35.0); MCHC 32.1 g/dL (31.0-37.0); MCV 95.4 fL (80.0-100.0); Mean Platelet Volume 6.8; Monocytes # (A) 0.3 k/uL (0-1.0); Monocytes % (A) 10 %; Neutrophils # (A) 1.7 k/uL (1.3-7.7); Neutrophils % (A) 53 %; Platelet Count 268 k/uL (150-450); RBC 4.08 m/uL (3.80-5.40); RDW 13.5 % (11.5-15.5); WBC 3.2 k/uL (3.8-10.6)
[2019-04-02 12:53] LABS: Erythrocyte Sedimentation Rate 8 mm/hr (0-20)
[2019-04-02 16:06] LABS: Protein, Total 6.4 g/dL (6.2-8.2)
[2019-04-02 16:08] LABS: Rheumatoid Factor 7 IU/mL (0-15)
[2019-04-02 16:16] LABS: Vitamin D 25 Hydroxy 67.6 ng/mL (30.0-100.0)
[2019-04-02 16:28] LABS: C Reactive Protein <0.4 mg/dL (0.0-0.8); Creatine Kinase 99 U/L (26-186)
[2019-04-02 18:25] LABS: Anti-Smith Ab Interp NEGATIVE (NEGATIVE); DNA Double-Stranded NEGATIVE (NEGATIVE)
[2019-04-03 11:35] LABS: Albumin 3.87 g/dL (3.80-4.90); Gamma Globulin 0.93 g/dL (0.70-1.50)
== END | disposition home or self-care (01) ==
LOC: LABWHC1 11:03
PROVIDERS: ATTEND Internal Medicine
DX: I10 Essential (primary) hypertension (principal); M81.0 Age-related osteoporosis without current pathological fracture; E55.9 Vitamin D deficiency, unspecified; R53.83 Other fatigue
CPT/HCPCS: 36415; 82306; 82550; 82607; 84165; 85025; 85652; 86038; 86140; 86225; 86235; 86431

== ENCOUNTER → 2020-02-04 | Outpatient (CLI) | payer MEDICARE, BC ==
[2020-02-04 12:34] LABS: Basophils % (A) 1 %; Eosinophils # (A) 0.1 k/uL (0-0.7); Eosinophils % (A) 4 %; HCT 37.7 % (34.0-46.0); HGB 11.9 gm/dL (11.4-16.0); Lymphocytes # (A) 0.8 k/uL (1.0-4.8); Lymphocytes % (A) 21 %; MCH 28.9 pg (25.0-35.0); MCHC 31.5 g/dL (31.0-37.0); MCV 91.5 fL (80.0-100.0); Mean Platelet Volume 6.7; Monocytes # (A) 0.4 k/uL (0-1.0); Monocytes % (A) 11 %; Neutrophils # (A) 2.3 k/uL (1.3-7.7); Neutrophils % (A) 62 %; Platelet Count 299 k/uL (150-450); RBC 4.12 m/uL (3.80-5.40); RDW 13.7 % (11.5-15.5); WBC 3.8 k/uL (3.8-10.6)
[2020-02-04 13:28] LABS: Erythrocyte Sedimentation Rate 25 mm/hr (0-20)
[2020-02-04 18:15] LABS: ALT 21 U/L (8-44); AST 26 U/L (13-35); African American GFR (CKD) 103.9 (60.0-200.0); Albumin/Globulin Ratio 1.63 (1.60-3.17); Alkaline Phosphatase 94 U/L (41-126); BUN/Creat Ratio 22.86 Ratio (12.00-20.00); C Reactive Protein <0.4 mg/dL (0.0-0.8); Calcium 10.2 mg/dL (8.7-10.3); Carbon Dioxide 26.7 mmol/L (21.6-31.8); Chloride 105 mmol/L (96-109); Chol/HDL Ratio 1.96; Cholesterol 216 mg/dL (0-200); Creatine Kinase 94 U/L (26-186); Globulin 2.7 g/dL (1.6-3.3); Glucose 91 mg/dL (70-110); Non-African American GFR(CKD) 89.7 (60.0-200.0); Potassium 4.4 mmol/L (3.5-5.5); Sodium 139 mmol/L (135-145); Total Bilirubin 0.6 mg/dL (0.3-1.2); Total Protein 7.1 g/dL (6.2-8.2); Triglycerides <50.0 mg/dL (0.0-149.0)
== END | disposition home or self-care (01) ==
LOC: LABWHC1 11:47
PROVIDERS: ATTEND Internal Medicine
DX: Z00.00 Encounter for general adult medical examination without abnormal findings (principal); D64.9 Anemia, unspecified; E87.8 Other disorders of electrolyte and fluid balance, not elsewhere classified; E78.5 Hyperlipidemia, unspecified; E05.90 Thyrotoxicosis, unspecified without thyrotoxic crisis or storm; E55.9 Vitamin D deficiency, unspecified; D72.819 Decreased white blood cell count, unspecified
CPT/HCPCS: 36415; 80053; 80061; 82272; 82306; 82550; 84439; 84443; 85025; 85652; 86140

== ENCOUNTER → 2020-02-04 | Outpatient (CLI) | payer MEDICARE, BC ==
--- NOTE | 2020-02-05 09:08 | XR ---
EXAMINATION TYPE: XR hand complete LT DATE OF EXAM: 02/04/2020 CLINICAL HISTORY: Left ganglion cyst TECHNIQUE: Frontal, lateral and oblique images of the left hand are obtained. COMPARISON: None. FINDINGS: There is questionable subtle osseous erosion versus cortical cyst formation of the fusiform , hamate, and base of the fifth metacarpal. There is increased density of the soft tissues surroundin g this. Minimal negative ulnar variance. No acute fracture or dislocation in the left hand although m etallic ring partially obscures the left proximal fourth phalanx. Very minimal degenerative change of the first metacarpal phalangeal joint. IMPRESSION: Increased density of the soft tissues and questionable erosion versus cystic change of th e adjacent ulnar sided osseous structures of the carpometacarpal joint. MRI with contrast recommended for further evaluation in this patient with possible ganglion cyst.
== END | disposition home or self-care (01) ==
LOC: RADXRMAIN 17:05
PROVIDERS: ATTEND Internal Medicine
DX: M67.432 Ganglion, left wrist (principal)

== ENCOUNTER → 2020-02-28 | Outpatient (CLI) | payer MEDICARE, BC ==
--- NOTE | 2020-02-29 09:27 | MR ---
EXAMINATION TYPE: MR hand LT wo/w con DATE OF EXAM: 02/28/2020 COMPARISON: Radiographs 02/04/2020 HISTORY: 69-year-old female R93.6, Abnormal findings on xray, ganglion cyst. Pain and swelling along the top of the left hand and wrist area. Slammed hand in car door 3 months ago. Technique: Multiplanar, multisequence images of the left hand were obtained before and after administ ration of 7 mL intravenous Gadavist gadolinium contrast. FINDINGS: Evaluation of the osseous structures shows no evidence for acute or healing fracture. Mild degenerati ve change of the first MCP joint. Mild thickening and slight heterogeneity of the radial sided joint capsules of the second and third M CP joints. There is a severe tenosynovitis involving the fourth and fifth dorsal compartment tendon sheaths. Pos sible interstitial tears of the extensor indices and a couple of the extensor digitorum tendons. Ther e is thickened synovial enhancement and small foci of low signal within the tenosynovial fluid. The wrist will be imaged separately. IMPRESSION: 1. No evidence for acute or healing fracture. The wrist will be imaged separately. 2. Severe tenosynovitis involving the fourth and fifth dorsal compartments accounting for the severe soft tissue swelling. There is thickened synovial enhancement and large amount of tenosynovial fluid. Some internal nonenhancing low signal foci are also present in the fluid. Consider inflammatory teno synovitis such as in the setting of RA, infectious tenosynovitis, or posttraumatic hemorrhagic tenosy novitis. 3. Suggestion of small interstitial tears within the extensor indices tendon and within a couple of t he extensor digitorum tendons. 4. Capsular contusions versus sprains especially along the radial collateral ligaments of the second and third MCP joints.
== END | disposition home or self-care (01) ==
LOC: RADMRIMAIN 14:09
PROVIDERS: ATTEND Internal Medicine
DX: M65.842 Other synovitis and tenosynovitis, left hand (principal); M25.842 Other specified joint disorders, left hand
CPT/HCPCS: 73220; A9585

== ENCOUNTER → 2020-02-29 | Outpatient (CLI) | payer MEDICARE, BC ==
--- NOTE | 2020-03-01 04:31 | MR ---
EXAMINATION TYPE: MR wrist LT wo/w con DATE OF EXAM: 02/29/2020 COMPARISON: HISTORY: Pain and swelling top of left hand and wrist area, slammed hand in car door 3 months ago CONTRAST: Standard multiplanar, multisequence MRI departmental protocol utilizing 7 mL intravenous Gadavist everett olinium contrast. There is some narrowing of the radiocarpal joint space. The triangular cartilage appears intact. The carpal bones have fairly normal signal pattern. There is no evidence of a fracture. The visualized me tacarpals appear intact. There is extensive subcutaneous edema and soft tissue swelling on the dorsum of the carpus. There is some fluid around the extensor tendons of the wrist. I see no focal bone juan jose truction. Flexor and extensor tendons appear intact. There are small periarticular cysts anterior to the radial styloid process consistent with synovial cysts. The contrast images show no pathologic enh ancement. 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 No fracture. Extensive dorsal soft tissue swelling. Fluid around the extensor tendons could relate to some teno sy novitis. Small synovial cysts anterior to the radial styloid process.
== END | disposition home or self-care (01) ==
LOC: RADMRIMAIN 14:05
PROVIDERS: ATTEND Internal Medicine
DX: M19.032 Primary osteoarthritis, left wrist (principal); M79.89 Other specified soft tissue disorders
CPT/HCPCS: 73223; A9585

== ENCOUNTER → 2020-03-11 | Outpatient (CLI) | payer MEDICARE, BC ==
[2020-03-11 17:42] LABS: Rheumatoid Factor, Qnt 10 IU/mL (0-15)
[2020-03-11 18:08] LABS: Cyclic Citrull Pep IgG Unit 0.9 U/mL; Cyclic Citrullinated Pep IgG NEGATIVE (NEGATIVE)
== END | disposition home or self-care (01) ==
LOC: LABWHC1 09:02
PROVIDERS: ATTEND Internal Medicine
DX: M19.90 Unspecified osteoarthritis, unspecified site (principal); M25.532 Pain in left wrist; M25.562 Pain in left knee
CPT/HCPCS: 36415; 85652; 86200; 86431; 86618

== ENCOUNTER → 2020-06-13 | Outpatient (CLI) | payer MEDICARE, BC ==
--- NOTE | 2020-06-13 15:13 | NM ---
EXAMINATION TYPE: NM bone 3 phase DATE OF EXAM: 06/13/2020 COMPARISON: NONE HISTORY: Osteomyelitis Triple phase bone scintigraphy was performed following the injection of 24.5 mCi Tc 99m MDP. Immedia te images and 5.25 hours post injection images acquired. FINDINGS: Blood flow: There is increased blood flow to the left wrist and left hand compared to the right hand Blood pool: Focal radiotracer is within the distal forearm and within the proximal carpal region. Mil d increased uptake is within the right carpal region. Right carpal bones appear photopenic. Static images: There is focal radiotracer accumulation within the carpal metacarpal junction of the r ight hand. This is likely degenerative in nature. Suspicious focal uptake within the left hand and wr ist to correspond to the areas of increased flow and blood pooling are not evident. There is some mil d increased uptake diffusely within the carpal region. IMPRESSION: 1. Findings suggestive for soft tissue infection of the left hand and wrist. Uptake at 3 phases to crockett ggest osteomyelitis or not readily apparent. 2. Degenerative changes right carpal metacarpal junction
== END | disposition home or self-care (01) ==
LOC: RADNMMAIN 07:24
PROVIDERS: ATTEND Orthopaedic Surgery Hand Surgery
DX: M19.042 Primary osteoarthritis, left hand (principal)
CPT/HCPCS: 78315; A9503

== ENCOUNTER → 2020-07-08 | Outpatient (CLI) | payer MEDICARE, BC ==
[2020-07-08 15:21] LABS: Basophils # (A) 0.1 k/uL (0-0.2); Basophils % (A) 1 %; Eosinophils # (A) 0.1 k/uL (0-0.7); Eosinophils % (A) 3 %; HCT 36.8 % (34.0-46.0); HGB 11.8 gm/dL (11.4-16.0); Lymphocytes % (A) 21 %; MCHC 32.1 g/dL (31.0-37.0); MCV 90.3 fL (80.0-100.0); Mean Platelet Volume 6.9; Monocytes # (A) 0.5 k/uL (0-1.0); Monocytes % (A) 10 %; Neutrophils % (A) 64 %; Platelet Count 279 k/uL (150-450); RBC 4.08 m/uL (3.80-5.40); RDW 14.4 % (11.5-15.5); WBC 4.7 k/uL (3.8-10.6)
[2020-07-08 16:40] LABS: Erythrocyte Sedimentation Rate 13 mm/hr (0-20)
== END | disposition home or self-care (01) ==
LOC: LABWHC1 13:41
PROVIDERS: ATTEND Internal Medicine
DX: M77.9 Enthesopathy, unspecified (principal); M19.90 Unspecified osteoarthritis, unspecified site
CPT/HCPCS: 36415; 85025; 85652; 86140

== ENCOUNTER → 2021-06-25 | Outpatient (CLI) | payer MEDICARE, BC ==
[2021-06-25 21:28] LABS: Basophils # (A) 0.04 X 10*3/uL (0.00-0.10); Basophils % (A) 1.2 %; Eosinophils # (A) 0.16 X 10*3/uL (0.04-0.35); Eosinophils % (A) 4.8 %; HCT 37.8 % (37.2-46.3); HGB 12.2 g/dL (12.0-15.0); Lymphocytes # (A) 0.88 X 10*3/uL (0.90-5.00); Lymphocytes % (A) 26.2 %; MCH 31.8 pg (27.0-32.0); MCHC 32.3 g/dL (32.0-37.0); MCV 98.4 fL (80.0-97.0); Mean Platelet Volume 9.8 fL (9.5-12.2); Monocytes # (A) 0.44 X 10*3/uL (0.20-1.00); Monocytes % (A) 13.1 %; Neutrophils # (A) 1.83 X 10*3/uL (1.80-7.70); Neutrophils % (A) 54.4 %; Platelet Count 280 X 10*3/uL (140-440); RBC 3.84 X 10*6/uL (4.10-5.20); RDW 13.5 % (11.5-14.5); WBC 3.36 X 10*3/uL (4.50-10.00)
[2021-06-25 23:16] LABS: Erythrocyte Sedimentation Rate 17 mm/Hr (0-30)
[2021-06-26 11:40] LABS: Creatine Kinase 115 U/L (26-186); Magnesium 2.1 mg/dL (1.5-2.4); Phosphorus 3.5 mg/dL (2.4-5.1); Uric Acid 4.5 mg/dL (2.9-7.7)
[2021-06-26 11:41] LABS: ALT 25 U/L (8-44); AST 27 U/L (13-35); African American GFR (CKD) 103.7 (60.0-200.0); Albumin 4.6 g/dL (3.8-4.9); Albumin/Globulin Ratio 1.73 (1.60-3.17); Alkaline Phosphatase 92 U/L (41-126); BUN/Creat Ratio 24.63 Ratio (12.00-20.00); Blood Urea Nitrogen 16.6 mg/dL (9.0-27.0); Calcium 9.9 mg/dL (8.7-10.3); Carbon Dioxide 20.2 mmol/L (21.6-31.8); Chloride 103 mmol/L (96-109); Chol/HDL Ratio 2.08 Ratio; Globulin 2.6 g/dL (1.6-3.3); Glucose 90 mg/dL (70-110); Non-African American GFR(CKD) 89.5 (60.0-200.0); Potassium 4.2 mmol/L (3.5-5.5); Sodium 140 mmol/L (135-145); Total Protein 7.2 g/dL (6.2-8.2)
[2021-06-26 12:41] LABS: C Reactive Protein <0.30 mg/dL (0.00-0.80)
== END | disposition home or self-care (01) ==
LOC: LABWHC1 10:12
PROVIDERS: ATTEND Internal Medicine
DX: I10 Essential (primary) hypertension (principal); E87.8 Other disorders of electrolyte and fluid balance, not elsewhere classified; E78.5 Hyperlipidemia, unspecified; E03.9 Hypothyroidism, unspecified; E55.9 Vitamin D deficiency, unspecified; M10.9 Gout, unspecified; D64.9 Anemia, unspecified
CPT/HCPCS: 36415; 80053; 80061; 82306; 82550; 83735; 84100; 84439; 84443; 84550; 85025; 85652; 86140

== ENCOUNTER → 2021-10-29 | Outpatient (CLI) | payer MEDICARE, BC ==
--- NOTE | 2021-10-29 16:17 | XR ---
EXAMINATION TYPE: XR knee complete bilateral DATE OF EXAM: 10/29/2021 COMPARISON: 05/23/2017 HISTORY: Pain TECHNIQUE: Bilateral knees examined in 3 views each. FINDINGS: Left knee: There is deformity of the medial tibial plateau. A large medial tibial plateau and femoral condylar spur is present. Subchondral cyst formation appears to be present along the tibia and dista l femur. Mild narrowing of the lateral compartment is present. Large patellofemoral joint space spurr ing is present. Small joint effusion may be present. Some lateral meniscal calcification may be prese nt. Right knee: There is deformity of the medial tibial plateau. Medial and lateral femoral condylar and tibial plateau spurring is present. Subchondral cyst formation appears to be present. Large patellofe moral spurring is present. Joint effusion is present IMPRESSION: 1. Advanced bilateral degenerative changes within the knees. Extensive spurring is present. Small negrita int effusions are likely present.
== END | disposition home or self-care (01) ==
LOC: RADXRMAIN 13:45
PROVIDERS: ATTEND Family Medicine
DX: M17.0 Bilateral primary osteoarthritis of knee (principal); M25.762 Osteophyte, left knee; M25.761 Osteophyte, right knee

== ENCOUNTER 2021-11-17 15:59 | Emergency (ER) | payer MEDICARE, BC ==
--- NOTE | 2021-11-17 15:16 | US ---
EXAMINATION TYPE: US carotid duplex BILAT DATE OF EXAM: 11/17/2021 COMPARISON: NONE CLINICAL HISTORY: R42 DIZZINESS AND GIDDINESS. Light headedness. EXAM MEASUREMENTS: RIGHT: Peak Systolic Velocity (PSV) cm/sec ----- Right CCA: 64.3 ----- Right ICA: 268 ----- Right ECA: 112 ICA/CCA ratio: 4.17 RIGHT: End Diastole cm/sec ----- Right CCA: 5.2 ----- Right ICA: 79.5 ----- Right ECA: 10.0 LEFT: Peak Systolic Velocity (PSV) cm/sec ----- Left CCA: 90.1 ----- Left ICA: 112 ----- Left ECA: 87.1 ICA/CCA ratio: 1.24 LEFT: End Diastole cm/sec ----- Left CCA: 22.7 ----- Left ICA: 25.6 ----- Left ECA: 0.0 VERTEBRALS (direction of flow): Right Vertebral: Antegrade Left Vertebral: Antegrade Rhythm: Normal Hollis scale images show fairly severe shadowing plaque at right carotid bulb. There is increased peak systolic and end-diastolic velocity in the right internal carotid artery with abnormal ratio. IMPRESSION: Severe atherosclerotic change with hemodynamically significant stenosis estimated at gre ater than 70% in the proximal right internal carotid artery . Advise further investigation with CTA o r MRA of the neck to further evaluate. Criteria for Assigning % of Stenosis / Diameter reduction (Estimation based on the indirect measurements of the internal carotid artery velocities (ICA PSV). 1. Normal (no stenosis)=ICA PSV < 125 cm/s: ratio < 2.0: ICA EDV<40 cm/s. 2. Less than 50% stenosis=ICA PSV < 125 cm/s: ratio < 2.0: ICA EDV<40 cm/s. 3. 50 to 69% stenosis=ICA PSV of 125 to 230 cm/s: ration 2.0 ? 4.0: ICA EDV 40-100 cm/s. 4. Greater than 70% stenosis to near occlusion= ICA PSV > 230 cm/s: ratio > 4.0: ICA EDV > 100 cm/s. 5. Near occlusion= ICA PSV velocities may be low or undetectable: variable ratio and ICA EDV. 6. Total occlusion=unable to detect flow.
[2021-11-17 16:08] VITALS: BP 186/83; PULSE 84; RESP 18; TEMP 98.2
--- NOTE | 2021-11-18 08:00 | ECHOF ---
Referral Reason:R42 DIZZINESS AND GIDDINESS MEASUREMENTS -------- HEIGHT: 170.2 cm WEIGHT: 68.0 kg BP: IVSd: 1.4 cm (0.6 - 1.1) LVIDd: 2.7 cm (3.9 - 5.3) LVPWd: 1.4 cm (0.6 - 1.1) IVSs: 1.7 cm LVIDs: 1.1 cm LVPWs: 1.8 cm LAESV Index (A-L): 23.49 ml/m Ao Diam: 3.0 cm (2.0 - 3.7) AV Cusp: 1.7 cm (1.5 - 2.6) LA Diam: 2.5 cm (2.7 - 3.8) MV EXCURSION: 13.970 mm (> 18.000) MV EF SLOPE: 61 mm/s (70 - 150) EPSS: 0.6 cm MV E Luis Felipe: 0.84 m/s MV DecT: 190 ms MV A Luis Felipe: 0.98 m/s MV E/A Ratio: 0.86 RAP: 5.00 mmHg RVSP: 34.22 mmHg FINDINGS -------- This was a technically good study. The left ventricular size is normal. There is moderate concentric left ventricular hypertrophy. O verall left ventricular systolic function is normal with, an EF between 60 - 65 %. Normal LAP Grade 1 Diastolic Dysfunction. The right ventricle is normal in size. The left atrial size is normal. Normal LA size by volume 22+/-6 ml/m2. The right atrial size is normal. Aortic valve is trileaflet and is mildly thickened. The mitral valve is normal. Mild mitral regurgitation is present. The tricuspid valve appears structurally normal. Mild tricuspid regurgitation present. Right vent ricular systolic pressure is normal at < 35 mmHg. There is no pulmonic regurgitation present. The aortic root size is normal. Normal inferior vena cava with normal inspiratory collapse consistent with estimated right atrial pre ssure of 5 mmHg. There is no pericardial effusion. CONCLUSIONS -------- 1. The left ventricular size is normal. 2. There is moderate concentric left ventricular hypertrophy. 3. Overall left ventricular systolic function is normal with, an EF between 60 - 65 %. 4. Normal LAP Grade 1 Diastolic Dysfunction. 5. Aortic valve is trileaflet and is mildly thickened. 6. Mild mitral regurgitation is present. 7. Mild tricuspid regurgitation present. 8. There is no pericardial effusion. pleural effusion noted STUDENT WORKER: Rosio Christina RDCS
== END 2021-11-17 16:17 | disposition left against medical advice (07) ==
LOC: EC 15:59
DX: Z53.21 Procedure and treatment not carried out due to patient leaving prior to being seen by health care provider (principal); R42 Dizziness and giddiness
CPT/HCPCS: 93306; 93880; 99499

== ENCOUNTER → 2021-11-23 | Outpatient (CLI) | payer MEDICARE, BC ==
--- NOTE | 2021-11-23 12:01 | CT ---
EXAMINATION TYPE: CT angio head neck DATE OF EXAM: 11/23/2021 HISTORY: Carotid Stenosis COMPARISON: Carotid Dopplex dated 11/17/2021 CT DLP: 262 mGycm. Automated Exposure Control for Dose Reduction was Utilized. TECHNIQUE: CTA scan of the head and neck is performed without and with IV Contrast, patient injected with 65 ml mL of Isovue 370, axial images are obtained, coronal and sagittal reformatted images are reviewed. 3D reconstructed images are created on an independent workstation and reviewed. FINDINGS: Carotid/Vascular Structures: Severe (more than 90%) stenosis of the proximal portion of the right int ernal carotid artery starting from the bifurcation of the right common carotid artery and caused by a partially calcified atheromatous plaque extending for about 18 mm, yet the artery is patent distally . Atherosclerotic calcification of the proximal portion of the left internal carotid artery causing a bout 30% stenosis, yet patent distally. Atherosclerotic calcifications of the aortic arch and the cav ernous portions of the internal carotid arteries. Otherwise normal caliber and enhancement of the trudy or neck arteries and intracranial arteries without other significant stenosis, occlusion, dissection or aneurysm. Patent major intracranial venous sinuses. Other: No abnormal intracranial enhancement. Degenerative changes of the cervical spine most evident at C5-6 and C6-7 levels with anterolisthesis of C3 over C4, C4 over C5 and C7 over T1. Spinal canal s tenosis is seen at C7-T1 level. IMPRESSION: More than 90% stenosis of the origin of the right internal carotid artery by a partially calcified at heromatous plaque as detailed above. Other incidental findings as described above.
== END | disposition home or self-care (01) ==
LOC: RADCTMAIN 08:27
PROVIDERS: ATTEND Family Medicine
DX: I65.21 Occlusion and stenosis of right carotid artery (principal)
CPT/HCPCS: 70496; 70498; Q9967

== ENCOUNTER 2021-12-09 10:01 | Inpatient (IN) | payer MEDICARE, BC ==
[2021-12-08 10:37] VITALS: BMI 24.3
[~2021-12-09 10:01] MED LIST: ALPRAZolam 0.25 MG TAB PO PRN; ALPRAZolam 0.5 MG TAB PO PRN; NITROGLYCERIN SL TABS 0.4 MG TAB SUBLINGUAL PRN; RX INFO: IV CONTRAST WAS GIVEN 1 EACH MISC MISCELLANE PRN; SODIUM CHLORIDE 0.9% 1,000 ML in EMPTY BAG 1 BAG IV ONE; ceFAZolin 2 GM in SODIUM CHLORIDE 0.9% 500 ML 500 ML IRRIGATION PRN
[2021-12-09 11:34] LABS: Basophils # (A) 0.1 k/uL (0-0.2); Basophils % (A) 1 %; Eosinophils # (A) 0.1 k/uL (0-0.7); Eosinophils % (A) 2 %; HCT 38.2 % (34.0-46.0); HGB 12.7 gm/dL (11.4-16.0); Lymphocytes # (A) 0.9 k/uL (1.0-4.8); Lymphocytes % (A) 19 %; MCH 31.2 pg (25.0-35.0); MCHC 33.3 g/dL (31.0-37.0); MCV 93.6 fL (80.0-100.0); Mean Platelet Volume 6.9; Monocytes # (A) 0.5 k/uL (0-1.0); Monocytes % (A) 10 %; Neutrophils # (A) 3.2 k/uL (1.3-7.7); Neutrophils % (A) 65 %; Platelet Count 281 k/uL (150-450); RBC 4.08 m/uL (3.80-5.40); RDW 12.7 % (11.5-15.5); WBC 4.9 k/uL (3.8-10.6)
[2021-12-09 11:44] LABS: African American GFR (CKD) >90 (>60 ml/min/1.73 sqM); Anion Gap 6 mmol/L; Blood Urea Nitrogen 14 mg/dL (7-17); Calcium 9.5 mg/dL (8.4-10.2); Carbon Dioxide 27 mmol/L (22-30); Chloride 104 mmol/L (98-107); Glucose 96 mg/dL (74-99); Non-African American GFR(CKD) >90 (>60 ml/min/1.73 sqM); Potassium 3.9 mmol/L (3.5-5.1); Sodium 137 mmol/L (137-145)
[2021-12-09] MEDS ORDERED: ASPIRIN 81 MG PO ONE (12:36)
[2021-12-09] MEDS ORDERED: CLOPIDOGREL 75 MG TAB PO ONE (12:36)
[2021-12-09] MEDS ORDERED: LIDOCAINE 1% INJ 10MG/ML (20 ML MDV) SQ ONE ×3 (12:38→12:39)
[2021-12-09] MEDS ORDERED: HEPARIN SODIUM 1,000 UN/ML (10ML VL) IV ONE (12:50)
[2021-12-09] MEDS ORDERED: IOPAMIDOL-370 125ML BTL INJ ONE ×2 (13:35)
[2021-12-09] MEDS ORDERED: IOPAMIDOL-370 100ML BTL INJ ONE (13:39)
[2021-12-09] MEDS ORDERED: MAG HYDROX/AL HYDROX/SIMETH 30 ML CUP PO PRN (13:41)
[2021-12-09] MEDS ORDERED: ATROPINE SULFATE 0.1 MG/ML 10ML SYRINGE IV PRN (13:41)
--- NOTE | 2021-12-09 13:50 | P.PCN ---
Date of Procedure: 12/09/21 Operative Findings: CAROTID ARTERY INTERVENTION Performing physician Aristeo Cole M.D. 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 The right common femoral artery was cannulated using puncture technique under ultrasound guidance, the micropuncture wire passed easily then replace 90 cm 6- Liberian shuttle sheath in the right common femoral artery over an 035 stiff Glidewire. That point anticoagulation was initiated and the patient was given 6000 use of heparin at the beginning of the procedure with continuous ACT monitoring throughout the procedure Subsequently I did aortic arch angiogram using 5-Liberian pigtail catheter. The angiogram revealed type II aortic arch Attending engaging the a dominant using a JB2 catheter was unsuccessful. Finally I was able engaging it using PTK catheter with supra core wire and I used multipurpose catheter as a dilator. Left common and right internal carotid artery angiogram was performed and revealed critical lesion involving the right common carotid artery right after the takeoff from the left common carotid artery. At that point and after prepping the filter wire and that was [employer] NAHUN filter wire I did advance the wire through the lesion in the right common carotid artery and subsequently I deployed the filter under fluoroscopy guidance. Predilatation of the lesion was performed using 4 mm balloon. Subsequently I deployed a 7-10 mm x 30 mm Acculink stent under fluoroscopy guidance after the stent was positioned under fluoroscopy guidance. Postdilatation was performed using 5 mm balloon. The following angiogram showed an excellent angiographic results and the procedure was completed without any complication Postprocedure management #1 dual antiplatelet therapy #2 restart the patient back on anticoagulation #3 pulled the sheath from the right groin and manual bleeding control #4 ICU monitoring #5 follow-up with the patient
--- NOTE | 2021-12-09 14:21 | IR ---
EXAMINATION TYPE: IR stent intravas non coronary DATE OF EXAM: 12/09/2021 COMPARISON: NONE HISTORY: Fluoroscopy time. Fluoroscopy was provided to the referring clinician.
[2021-12-09 14:34] LABS: Glucose,Whole Blood 92 mg/dL (75-99)
[2021-12-09] MEDS: SODIUM CHLORIDE 0.9% 1,000 ML IV SCH (16:21)
[2021-12-09] MEDS: ACETAMINOPHEN TAB 325 MG TAB PO PRN ×2 (17:42→23:31)
[2021-12-09] MEDS ORDERED: ATORVASTATIN 40 MG TAB PO SCH (21:00)
[2021-12-10 07:45] LABS: Basophils % (A) 1 %; Eosinophils # (A) 0.1 k/uL (0-0.7); Eosinophils % (A) 2 %; HCT 34.3 % (34.0-46.0); HGB 10.7 gm/dL (11.4-16.0); Hypochromasia Moderate; Lymphocytes # (A) 0.7 k/uL (1.0-4.8); Lymphocytes % (A) 15 %; MCH 30.8 pg (25.0-35.0); MCHC 31.2 g/dL (31.0-37.0); Monocytes # (A) 0.5 k/uL (0-1.0); Monocytes % (A) 10 %; Neutrophils # (A) 3.4 k/uL (1.3-7.7); Neutrophils % (A) 70 %; Platelet Count 236 k/uL (150-450); RBC 3.47 m/uL (3.80-5.40); RDW 13.1 % (11.5-15.5); WBC 4.9 k/uL (3.8-10.6)
[2021-12-10 07:52] LABS: African American GFR (CKD) >90 (>60 ml/min/1.73 sqM); Anion Gap 5 mmol/L; Blood Urea Nitrogen 10 mg/dL (7-17); Carbon Dioxide 24 mmol/L (22-30); Chloride 107 mmol/L (98-107); Glucose 92 mg/dL (74-99); Non-African American GFR(CKD) >90 (>60 ml/min/1.73 sqM); Potassium 4.4 mmol/L (3.5-5.1); Sodium 136 mmol/L (137-145)
[2021-12-10 08:23] VITALS: TEMP 97.6
[2021-12-10] MEDS: SODIUM CHLORIDE 0.9% 1,000 ML IV SCH (08:29)
[2021-12-10] MEDS ORDERED: CLOPIDOGREL 75 MG TAB PO SCH (09:00)
--- NOTE | 2021-12-10 09:03 | P.DS ---
Providers Date of admission: 12/09/21 10:01 Attending physician: Aristeo Cole Primary care physician: [facility] Course: The patient is a 71-year-old female patient. Successful stenting of the right internal carotid artery with an excellent angiographic results without any complication from right groin approach. The patient is going to be discharged later on today. The right groin is soft and nontender and without any bruises [place] she will be discharged on dual antiplatelet therapy as well as a statin and I'll follow-up with the patient next week in the office Plan - Discharge Summary Discharge Rx Participant: No New Discharge Prescriptions: New Aspirin 325 mg PO DAILY #90 tab Clopidogrel [Plavix] 75 mg PO DAILY #90 tab Continue Meloxicam 15 mg PO DAILY PRN PRN Reason: Pain Levothyroxine Sodium [Synthroid] 25 mcg PO HS Ubidecarenone [Co Q-10] 100 mg PO DIRECTED Multivitamins, Thera [Multivitamin (formulary)] 1 tab PO DAILY Ascorbic Acid [Vitamin C] 500 mg PO DAILY Omeprazole 20 mg PO 1500 Glucosam/Arian-Msm1/C/Crispin/Bosw [Glucosamine-Chondroitin Tablet] 1 each PO DAILY Collagen Tab 1,000 mg PO DAILY Acetaminophen [Tylenol Extra Strength] 500 mg PO DAILY PRN PRN Reason: Pain Metoprolol Succinate (ER) [Toprol XL] 25 mg PO W/SUPPER Atorvastatin [Lipitor] 40 mg PO W/SUPPER Fish Oil Tab 600 mg PO DAILY Discontinued Aspirin 81 mg PO DAILY Discharge Medication List Levothyroxine Sodium [Synthroid] 25 mcg PO HS 03/05/16 [History] Meloxicam 15 mg PO DAILY PRN 03/05/16 [History] Ascorbic Acid [Vitamin C] 500 mg PO DAILY 01/21/17 [History] Multivitamins, Thera [Multivitamin (formulary)] 1 tab PO DAILY 01/21/17 [History] Ubidecarenone [Co Q-10] 100 mg PO DIRECTED 01/21/17 [History] Acetaminophen [Tylenol Extra Strength] 500 mg PO DAILY PRN 12/08/21 [History] Atorvastatin [Lipitor] 40 mg PO W/SUPPER 12/08/21 [History] Collagen Tab 1,000 mg PO DAILY 12/08/21 [History] Fish Oil Tab 600 mg PO DAILY 12/08/21 [History] Glucosam/Arian-Msm1/C/Crispin/Bosw [Glucosamine-Chondroitin Tablet] 1 each PO DAILY 12/08/21 [History] Metoprolol Succinate (ER) [Toprol XL] 25 mg PO W/SUPPER 12/08/21 [History] Omeprazole 20 mg PO 1500 12/08/21 [History] Aspirin 325 mg PO DAILY #90 tab 12/10/21 [Rx] Clopidogrel [Plavix] 75 mg PO DAILY #90 tab 12/10/21 [Rx] Follow up Appointment(s)/Referral(s): Aristeo Cole MD [STAFF PHYSICIAN] - 1 Week
[2021-12-10 10:08] VITALS: BP 130/60; PULSE 60; RESP 12
== END 2021-12-10 12:05 | disposition home or self-care (01) | DRG 36 ==
LOC: 2ORMAIN 10:01 → 2SICU 14:06
PROVIDERS: ADMIT Internal Medicine Interventional Cardiology; ATTEND Internal Medicine Interventional Cardiology
PROC: B41D1ZZ Fluoroscopy of Aorta and Bilateral Lower Extremity Arteries using Low Osmolar Contrast (ICD-10-PCS; principal; 2021-12-09 12:00)
PROC: 037K3DZ Dilation of Right Internal Carotid Artery with Intraluminal Device, Percutaneous Approach (ICD-10-PCS; principal; 2021-12-09 12:00)
PROC: B3161ZZ Fluoroscopy of Right Internal Carotid Artery using Low Osmolar Contrast (ICD-10-PCS; principal; 2021-12-09 12:00)
PROC: B3141ZZ Fluoroscopy of Left Common Carotid Artery using Low Osmolar Contrast (ICD-10-PCS; principal; 2021-12-09 12:00)
DX: I65.21 Occlusion and stenosis of right carotid artery (principal); I10 Essential (primary) hypertension; E78.5 Hyperlipidemia, unspecified; Z79.1 Long term (current) use of non-steroidal anti-inflammatories (NSAID); Z79.82 Long term (current) use of aspirin; Z79.890 Hormone replacement therapy; Z79.899 Other long term (current) drug therapy; Z88.1 Allergy status to other antibiotic agents; Z91.040 Latex allergy status; Z91.018 Allergy to other foods; Z88.8 Allergy status to other drugs, medicaments and biological substances; Z82.49 Family history of ischemic heart disease and other diseases of the circulatory system
CPT/HCPCS: 37215; 80048; 85025